=== PATIENT | male | born 1965 | race Caucasian/White ===

== ENCOUNTER 2019-12-19 11:03 | Outpatient (CLI) | payer OTHER, SELFPAY ==
--- NOTE | ~2019-12-19 | XR_ITS ---
EXAMINATION: XR chest 2V EXAM DATE: 12/19/2019 12:00 INDICATION: Cough and shortness of breath. TECHNIQUE: Frontal and lateral projections of the chest obtained and reviewed. Comparison is made to prior examination from 12/08/2019. FINDINGS: The lungs are clear. There are no pleural effusions. The cardiomediastinal silhouette is within normal limits. There is no pneumothorax suspected. The bones and soft tissues are unremarkab le. IMPRESSION: Unremarkable chest x-ray exam. Reviewed, dictated and finalized at location A. OL TRANSPORTATION SUPERVISOR
--- NOTE | ~2019-12-19 | XR_ITS ---
EXAMINATION: XR hip RT min 2V EXAM DATE: 12/19/2019 12:00 INDICATION: No known recent injury provided at this time. Pain of the right hip. TECHNIQUE: Right hip frontal, 'frog leg' projections for interpretation. Comparison is made to prior examination from 04/29/2017. FINDINGS: Smooth right hip femoral head contour, no radiographic evidence of avascular necrosis. The re is mild primary osteoarthritis. There are no acute fractures or dislocations identified. There is no subcutaneous gas. The soft tissue is unremarkable. There are no radiopaque foreign bodies. IMPRESSION: Mild right hip osteoarthritis unchanged. Reviewed, dictated and finalized at location A. ING ANALYST
--- NOTE | ~2019-12-19 | XR_ITS ---
EXAMINATION: XR lumbar spine 2-3V DATE: 12/19/2019 12:00 INDICATION: Radiculopathy and right-sided low back pain TECHNIQUE: Anteroposterior and lateral views of the lumbar spine, and cone-down lateral view of the l umbosacral junction were obtained. COMPARISON: Lumbar spine MR dated 05/13/2017 and radiographs dated 01/04/2016 and 04/02/2015 FINDINGS: There appear to be 6 nonrib-bearing lumbar segments are patent of this report numbered L1-L6. There a re only 11 rib-bearing thoracic segments on chest CT dated 01/02/2016. 8 mm anterolisthesis of L6 on S 1 with lucency projecting across the posterior most consistent with bilateral pars intra-articular is defects better appreciated on prior oblique imaging. 3 mm retrolisthesis L5 on L6. Mild anterior wed ging at T11 and L1. Mild to moderate disc height loss at L5 L6 and mild disc height loss at T10-T11 t hrough L1-L2, L4-L5 and L6-S1. IMPRESSION: 1. 6 nonrib-bearing lumbar segments, L1-L6 with 11 paired rib-bearing thoracic segments seen on prior CT. 2. Mild to moderate lumbar spondylosis most notable for chronic L6 spondylolysis with 8 mm anterolist hesis on S1. Reviewed, dictated and finalized at location A. STRETCHER IMPRESSION: 1. 6 nonrib-bearing lumbar segments, L1-L6 with 11 paired rib-bearing thoracic segments seen on prior CT. 2. Mild to moderate lumbar spondylosis most notable for chronic L6 spondylolysi s with 8 mm anterolisthesis on S1.
== END 2019-12-19 11:04 | disposition home or self-care (01) ==
LOC: CHSIMG 11:07
PROVIDERS: PCP Family Medicine; Visit Provider Family Medicine
DX: R05 Cough (principal); M25.551 Pain in right hip; M54.16 Radiculopathy, lumbar region
CPT/HCPCS: 71046; 72100; 73502

== ENCOUNTER 2019-12-27 08:11 | Outpatient (CLI) | payer OTHER, SELFPAY | END 2019-12-27 08:12 | disposition home or self-care (01) | LOC: CHSCARD 08:13 | PROVIDERS: PCP Family Medicine; Visit Provider Family Medicine | DX: R05 Cough (principal) | CPT/HCPCS: 94060; 94726; 94729 ==

== ENCOUNTER 2020-12-14 16:11 | Outpatient (CLI) | payer BC, SELFPAY ==
[2020-12-14 17:20] LABS: SARS-CoV-2 Ag Positive (Negative)
== END 2020-12-14 16:12 | disposition home or self-care (01) ==
LOC: CHSLAB 16:18
PROVIDERS: PCP Family Medicine; Visit Provider Family Medicine
DX: U07.1 COVID-19 (principal)
CPT/HCPCS: 87426; C9803

== ENCOUNTER 2020-12-15 19:47 | Emergency (ER) | payer BC, OTHER, SELFPAY ==
--- NOTE | ~2020-12-15 | XR_ITS ---
XR chest 1V portable DATE: 12/15/2020 21:14 INDICATION: Dyspnea TECHNIQUE: Portable AP chest on 12/15/2020 at 2116 hours COMPARISON: 12/19/2021 view chest FINDINGS: Limited portable single view of the chest. There is mild infiltrate or atelectasis in the mid and lower lung zones. Heart size is likely within normal range. No hilar or mediastinal mass, pulmonary vascular congestion , pleural effusion or pneumothorax is evident. IMPRESSION: Mild infiltrate or atelectasis in the mid and lower lung zones; limited portable examinat ion Reviewed, dictated and finalized at location A. OPERATIONS INTELLIGENCE OFFICER IMPRESSION: Mild infiltrate or atelectasis in the mid and lower lung zones; hernandez ited portable examination
--- NOTE | 2020-12-15 19:56 | ED.SOB ---
HPI - SOB/Dyspnea General Chief Complaint: Shortness of Breath/Dyspnea Stated Complaint: covid positive trouble breathing Source: patient Mode of arrival: ambulatory Limitations: no limitations History of Present Illness MD elicited complaint: shortness of breath and cough Pertinent past history: other (Diagnosed with COVID yesterday) Onset (ago): day(s) (4) Context: recent illness Timing: intermittent and progressively worsening Severity: moderate Exacerbating factors: lying flat and exertion Relieving factors: nothing Known history of: diabetes Associated symptoms: cough Treatment prior to arrival: none Related Data Home oxygen amount: none Home Medications Medication Instructions Recorded Confirmed metformin 500 mg PO DAILY 12/15/20 12/15/20 omeprazole 40 mg PO DAILY 12/15/20 12/15/20 Allergies Allergy/AdvReac Type Severity Reaction Status Date / Time No Known Allergies Allergy Verified 12/15/20 20:22 Review of Systems Review of Systems: All systems reviewed & are unremarkable except as noted in HPI and below Constitutional: Constitutional: Denies chills and Denies fever(s) Eyes: Eyes: Reports no additional eye complaints ENT: Reports system reviewed and no additional complaints, except as documented Cardiovascular: Cardiovascular: Reports no additional cardiovascular complaints Respiratory: Respiratory: Reports as per HPI Gastrointestinal: Gastrointestinal: Reports no additional gastrointestinal complaints Musculoskeletal: Musculoskeletal: Reports no additional musculoskeletal complaints Integumentary/Breasts: Skin/Breast: Reports system reviewed and no additional complaints, except as docu Neurologic: Reports system reviewed and no additional complaints, except as documented Psychiatric: Psychiatric: Reports no additional psychiatric complaints Endocrine: Endocrine: Reports no additional endocrine complaints [facility] Past Medical History Medical History (Updated 12/15/20 @ 21:48 by Yunier Izaguirre MD) GERD (gastroesophageal reflux disease) Morbid obesity Type 2 diabetes mellitus Surgical History Surgical History (Updated 12/15/20 @ 20:14 by Yunier Izaguirre MD) History of carpal tunnel surgery Social History Social History (Updated 12/15/20 @ 20:14 by Yunier Izaguirre MD) Smoking status: Former smoker Additional smoking assessment comments: quit 30 years Alcohol intake: current Alcohol use details: occasion Substance use: never Exam Const: General: healthy appearing, no acute distress and alert Nutritional Appearance: obese morbidly obese Orientation/consciousness: patient oriented x3 HENMT: Head: normal to inspection Ears: external ears normal General nose exam: Normal external nose present Face and sinus: normal facial exam Mouth: Yes lip normal and Yes moist mucous membranes Eyes: Conjunctivae: conjunctivae normal Pupils: Equal, round and reactive pupils present EOM: EOMs intact bilaterally Neck: Neck: normal visual inspection Resp: Effort & Inspection: tachypneic Auscultation: rhonchi lower bilaterally Cardio: Rate: tachycardic Rhythm: regular rhythm GI: GI Palp: Yes Soft to palpation and Yes Tenderness to palpation present (GI) Auscultation: normal bowel sounds Back/Spine/Pelvis: Cervical Spine: cervical ROM normal Thoracic/Lumbar Spine: thoraco-lumbar ROM normal Skin: General skin exam: normal color Rashes: no rashes Neuro: General: patient oriented x3, moves all extremities and no focal motor deficits Speech: normal speech Gait exam (Neuro): Normal gait present Extrem: General: normal to inspection and no clubbing, cyanosis or edema Psych: Mental Status: mental status grossly normal Affect: normal affect Attitude: cooperative Thought content: Yes Normal thought content present Course Course Emergency Course: Patient has mild tachypnea causing respiratory alkalosis. He is having good oxygen saturations 91-95% on room air. [place]
[2020-12-15 20:12] VITALS: BP 143/80; PULSE 134; RESP 30; TEMP 37.2; O2SAT 94
[2020-12-15 20:29] LABS: Base Excess ABG 0.4 mmol/L (0-2); HCO3 ABG 21.9 mmol/L (23-29); Oxygen Content ABG 20.8 %vol (16.0-22.0); Oxygen Saturation ABG 94.1 % (95-97); Oxyhemoglobin 93.1 % (94-100); PO2 ABG 64.8 mmHg (80-90); Total Hemoglobin 15.9 g/dL; pH ABG 7.51 (7.35-7.45)
[2020-12-15 20:31] LABS: Device ROOM AIR; Modified Allen's Test Pass; Site Drawn LEFT RADIAL
[2020-12-15 20:37] LABS: Hemoglobin 15.3 g/dL (14.0-18.0); Immature Granulocyte Absolute 0.01 K/mm3 (0.00-0.00); Immature Granulocyte Percent A 0.2 % (0.0-0.0); Lymphocytes Absolute Auto 0.79 K/mm3 (1.10-4.50); Lymphocytes Percent Auto 12.6 % (18.0-42.0); Mean Corpuscular HGB Conc 32.6 g/dL (32.0-36.0); Mean Corpuscular Hemoglobin 31.4 pg (27.0-31.0); Mean Corpuscular Volume 96.3 fL (78.0-102.0); Mean Platelet Volume 10.5 fl (8.7-11.0); Monocytes Absolute Auto 0.36 K/mm3 (0.10-0.90); Monocytes Percent Auto 5.7 % (2.0-11.0); Neutrophils Absolute Auto 5.1 K/mm3 (1.7-7.2); Neutrophils Percent Auto 81.5 % (50.0-70.0); Platelet Count Result 207 K/mm3 (150-420); Red Blood Count 4.88 M/mm3 (4.70-6.10); Red Cell Distribution Width 13.6 % (11.6-14.4); White Blood Count 6.3 K/mm3 (4.8-10.8)
[2020-12-15 20:55] LABS: D Dimer 0.58 mg/L (0.19-0.50)
[2020-12-15 20:58] LABS: BNP 10.5 pg/mL (0-100)
[2020-12-15 21:03] LABS: Alanine Aminotransferase 68 U/L (16-63); Albumin Level 3.1 g/dL (3.4-5.0); Alkaline Phosphatase 74 U/L (46-116); Anion Gap 11 mmol/L (8-16); Aspartate Amino Transferase 40 U/L (15-37); Bilirubin,Total 0.6 mg/dL (0.00-1.00); Blood Urea Nitrogen 11 mg/dL (7-18); Calcium 8.3 mg/dL (8.5-10.1); Carbon Dioxide 26 mmol/L (21-32); Chloride 101 mmol/L (98-108); Estimated CRCL calculation 110 ml/min; Estimated Glomerular Filt Rate > 60; Ferritin 620 ng/mL (26-388); Glucose 141 mg/dL (70-99); Osmolality Calculated 287 mOsm/kg (285-295); Sodium 138 mmol/L (136-145)
[2020-12-15 21:04] LABS: CRP 5.5 mg/dL (0.0-0.9); Magnesium 1.7 mg/dL (1.8-2.4)
[2020-12-15 21:31] VITALS: BP 151/79; PULSE 115; RESP 28; O2SAT 92
[2020-12-15] MEDS: DEXAMETHASONE SOD PHOS INJ 4 MG/ML VIAL 10 MG IV PUSH (21:52)
[2020-12-15] MEDS: ALBUTEROL SULFATE (*SP) INHALER 4 PUFF INHALATION (21:52)
--- NOTE | 2020-12-15 21:54 | PC.NURSE ---
Pt resting in bed semi fowlers. Agrees with plan to d/c to home.
[2020-12-15 22:03] VITALS: BP 138/88; PULSE 104; RESP 24; TEMP 37.1; O2SAT 94
== END 2020-12-15 22:04 | disposition home or self-care (01) ==
PROVIDERS: Emergency Provider Emergency Medicine; PCP Family Medicine
DX: U07.1 COVID-19 (principal); Z87.891 Personal history of nicotine dependence
CPT/HCPCS: 36415; 36600; 71045; 80053; 82728; 82805; 83735; 83880; 85025; 85380; 86140; 96374; 99283; 99284; A9270; J1100

== ENCOUNTER 2021-05-14 17:08 | Emergency (ER) | payer BC, SELFPAY ==
--- NOTE | ~2021-05-14 | CT_ITS ---
EXAMINATION: CTA chest PE protocol EXAM DATE: 05/14/2021 18:58 INDICATION: D dimer, shortness of breath. TECHNIQUE: Spiral CTA of the chest (pulmonary arteries) was performed with 100 cc Omnipaque 350 intr avenous contrast injection. Images were acquired during the pulmonary arterial phase. Coronal maxi mum intensity projection 3D-reconstructions were created by the technologist on dedicated workstation . Axial, coronal and sagittal reformatted images were reviewed. The dose-length product (DLP) for t his examination was 977.32 mGy-cm. The exposure was tailored according to patient size (auto mA exp osure control), and iterative reconstruction (ASIR) was used as additional dose reduction technique. There is no prior study for comparison. FINDINGS: Suboptimal pulmonary arterial opacification, some segmental pulmonary arteries not well ev aluated. No intraluminal filling defects identified. No thoracic aortic dissection. The lungs are c lear. There are no pleural or pericardial effusions. Tracheobronchial tree is patent. There is no mediastinal, hilar or axillary lymphadenopathy. There is no pneumothorax. There is borderline heart size. There is mild coronary arterial calcification, arterial sclerosis. There is hepatic anabel atosis. There is thoracic spondylosis without osteoblastic or osteolytic lesions identified. IMPRESSION: 1. Limited segmental evaluation, but no pulmonary emboli are suspected. 2. No acute findings. Reviewed, dictated and finalized at location A.
--- NOTE | ~2021-05-14 | XR_ITS ---
EXAMINATION: XR chest 2V EXAM DATE: 05/14/2021 18:02 INDICATION: Shortness of breath since COVID 19 in December. TECHNIQUE: Frontal and lateral projections of the chest obtained and reviewed. Comparison is made to prior examination from 12/15/2020. FINDINGS: The lungs are clear. There are no pleural effusions. The cardiomediastinal silhouette is within normal limits. There is no pneumothorax suspected. The bones and soft tissues are unremarkab le. IMPRESSION: Unremarkable chest x-ray exam. Reviewed, dictated and finalized at location A.
[2021-05-14 17:10] VITALS: BP 171/105; PULSE 94; RESP 20; TEMP 36.9
[2021-05-14 17:20] VITALS: O2SAT 96
--- NOTE | 2021-05-14 17:26 | ECG_ITS ---
Measurements Intervals [place] Rate: 90 P: 49 MO: 159 QRS: 2 QRSD: 90 T: 32 QT: 348 QTc: 428 Interpretive Statements SINUS RHYTHM DELAYED PRECORDIAL R/S TRANSITION BASELINE ARTIFACT- I, II, III, AVR, AVL, AVF, V1-V6 BORDERLINE ECG Electronically Signed On 05-14-2021 19:16:45 CDT by Riccardo Novak D.O.
--- NOTE | 2021-05-14 17:39 | ED.SOB ---
HPI - SOB/Dyspnea General Chief Complaint: Shortness of Breath/Dyspnea Stated Complaint: low pulse ox - Time Seen by Provider: 05/14/21 17:15 Source: patient Mode of arrival: ambulatory Limitations: no limitations History of Present Illness HPI Narrative: Patient comes in with complaints of shortness of breath which he noticed first this am at 7:30 am. Shortness of breath has been moderately severe, and ongoing since this am at 7:30. He is more short of breath with activity. He states he had Covid in late November and in December and has not felt he has ever really fully recovered. He had been doing better though until this am at 7:30 when he woke up short of breath. He took his pulse ox (he has a machine at home) and his sat was 84%. He says this usually runs 92% at rest since he had the Covid. He says he feels just like he had Covid and is worried he has it again. MD elicited complaint: shortness of breath and cough (mild cough, some clear thin nasal discharge ) Pertinent past history: other (recent Covid) Onset (ago): hour(s) Context: occurred during exertion Timing: constant (ongoing since 7:30 am ) Severity: moderate Exacerbating factors: exertion Relieving factors: rest Known history of: other (morbid obesity) Associated symptoms: other (fatigue) Related Data Home Medications Medication Instructions Recorded Confirmed metformin 500 mg PO DAILY 12/08/19 05/14/21 omeprazole 40 mg PO DAILY 05/14/21 05/14/21 Allergies Allergy/AdvReac Type Severity Reaction Status Date / Time No Known Allergies Allergy Verified 12/08/19 00:15 Review of Systems Constitutional: Constitutional: Reports fatigue and Reports weakness Eyes: Eyes: Reports no additional eye complaints ENT: Reports system reviewed and no additional complaints, except as documented Cardiovascular: Cardiovascular: Reports no additional cardiovascular complaints Respiratory: Comments: some cough, clear, thin, sputum, some thin clear nasal discharge Gastrointestinal: Gastrointestinal: Reports no additional gastrointestinal complaints Genitourinary: Genitourinary: Reports no additional male genitourinary complaints Musculoskeletal: Musculoskeletal: Reports no additional musculoskeletal complaints Integumentary/Breasts: Skin/Breast: Reports system reviewed and no additional complaints, except as docu Neurologic: Reports system reviewed and no additional complaints, except as documented Psychiatric: Psychiatric: Reports no additional psychiatric complaints Endocrine: Endocrine: Reports no additional endocrine complaints Hematologic/Lymphatic: Hematologic/Lymphatic: Reports no additional hematologic/lymphatic complaints Allergic/Immunologic: Allergic/Immunologic: Reports no additional allergic/immunologic complaints [facility] Past Medical History Medical History Diabetes mellitus Morbid obesity Surgical History Surgical History H/O hernia repair History of carpal tunnel surgery Family History Family History (Updated 05/14/21 @ 18:03 by Yunier Gilmore MD) Mother Dementia Obesity Father COPD (chronic obstructive pulmonary disease) Social History Social History (Updated 05/14/21 @ 18:03 by Yunier Gilmore MD) Smoking status: Former smoker Alcohol intake: never Substance use: never Additional occupation/education comments: works on [employer] Gender identity (if verbalized by the patient): Male Exam Const: General: no acute distress and alert Orientation/consciousness: patient oriented x3 HENMT: Head: normal to inspection Ears: external ears normal and TM's normal bilaterally General nose exam: Normal external nose present Face and sinus: normal facial exam Mouth: Yes Normal oral and palatal mucosa present Throat: posterior oropharynx normal Eyes: Conjunctivae: conjunctivae normal Neck: Neck: n
[2021-05-14 17:52] LABS: Base Excess ABG 7.6 mmol/L (0-2); HCO3 ABG 35.3 mmol/L (23-29); Oxygen Saturation ABG 93.5 % (95-97); PCO2 ABG 62.8 mmHg (35-45); PO2 ABG 71.6 mmHg (80-90); pH ABG 7.37 (7.35-7.45)
[2021-05-14 17:53] LABS: Device NASAL CANNULA; Modified Allen's Test Pass; Site Drawn RIGHT RADIAL
[2021-05-14 17:56] LABS: Basophils Absolute Auto 0.02 K/mm3 (0.00-0.10); Basophils Percent Auto 0.3 % (0.0-1.0); Eosinophils Absolute Auto 0.08 K/mm3 (0.02-0.50); Hematocrit 48.9 % (40.0-54.0); Hemoglobin 15.6 g/dL (14.0-18.0); Immature Granulocyte Absolute 0.01 K/mm3 (0.00-0.00); Immature Granulocyte Percent A 0.1 % (0.0-0.0); Lymphocytes Absolute Auto 1.19 K/mm3 (1.10-4.50); Lymphocytes Percent Auto 15.3 % (18.0-42.0); Mean Corpuscular HGB Conc 31.9 g/dL (32.0-36.0); Mean Corpuscular Hemoglobin 31.8 pg (27.0-31.0); Mean Corpuscular Volume 99.8 fL (78.0-102.0); Mean Platelet Volume 10.3 fl (8.7-11.0); Monocytes Absolute Auto 0.55 K/mm3 (0.10-0.90); Monocytes Percent Auto 7.1 % (2.0-11.0); Neutrophils Percent Auto 76.2 % (50.0-70.0); Platelet Count Result 240 K/mm3 (150-420); Red Cell Distribution Width 13.5 % (11.6-14.4); White Blood Count 7.8 K/mm3 (4.8-10.8)
[2021-05-14 18:01] VITALS: PULSE 99; RESP 20; O2SAT 96
[2021-05-14 18:11] LABS: D Dimer 0.63 mg/L (0.19-0.50)
[2021-05-14 18:17] LABS: Alanine Aminotransferase 48 U/L (16-63); Albumin Level 3.1 g/dL (3.4-5.0); Alkaline Phosphatase 82 U/L (46-116); Anion Gap 3 mmol/L (8-16); Aspartate Amino Transferase 25 U/L (15-37); Bilirubin,Total 0.3 mg/dL (0.00-1.00); Blood Urea Nitrogen 13 mg/dL (7-18); Calcium 8.8 mg/dL (8.5-10.1); Carbon Dioxide 36 mmol/L (21-32); Chloride 102 mmol/L (98-108); Estimated CRCL calculation 117 ml/min; Estimated Glomerular Filt Rate > 60; Glucose 116 mg/dL (70-99); Osmolality Calculated 293 mOsm/kg (285-295); Potassium 4.2 mmol/L (3.5-5.1); Sodium 141 mmol/L (136-145); Total Protein 6.6 g/dL (6.4-8.2)
[2021-05-14 18:29] LABS: Troponin I 9.5 ng/L (0.00-60.4)
[2021-05-14 18:44] LABS: NT Pro B Type Natriuretic Pept 51 pg/mL (0-125)
--- NOTE | 2021-05-14 18:45 | PC.NURSE ---
report to DELMY jones.
[2021-05-14 18:46] LABS: SARS-CoV-2 RNA PCR Negative (Negative)
[2021-05-14] MEDS: DEXAMETHASONE 4 MG TABLET 12 MG PO (19:36)
[2021-05-14 19:43] VITALS: BP 150/98; PULSE 90; RESP 20; O2SAT 92
== END 2021-05-14 19:44 | disposition home or self-care (01) ==
PROVIDERS: Emergency Provider Emergency Medicine; PCP Family Medicine
DX: B34.9 Viral infection, unspecified (principal); Z20.822 Contact with and (suspected) exposure to COVID-19
CPT/HCPCS: 36415; 36600; 71046; 71275; 80053; 82805; 83880; 84484; 85025; 85380; 93005; 99283; 99284; C9803; J8540; Q9967; U0003; U0005

== ENCOUNTER 2021-06-19 08:57 | Outpatient (CLI) | payer BC, SELFPAY ==
[2021-06-19 09:10] VITALS: PULSE 84; O2SAT 83
[2021-06-19 09:12] VITALS: PULSE 106; O2SAT 88
[2021-06-19 09:15] VITALS: PULSE 106; O2SAT 88
[2021-06-19 09:23] VITALS: PULSE 94; O2SAT 3
--- NOTE | 2021-06-19 09:39 | HOMEO2EVAL ---
Evaluation was performed at [facility] Home Oxygen Evaluation RC: Home Oxygen (O2) Evaluation Start: 06/19/21 09:26 Freq: Status: Active Protocol: RPE Activity Type Activity Date Activity User E-Sign Co-Sign Detail Recorded Client Recorded Date Recorded By Document 06/19/21 09:10 SJB [id number] 06/19/21 09:38 SJB Document 06/19/21 09:12 SJB [id number] 06/19/21 09:38 SJB Document 06/19/21 09:15 SJB [id number] 06/19/21 09:38 SJB Document 06/19/21 09:23 SJB [id number] 06/19/21 09:38 SJB 06/19/21 06/19/21 06/19/21 09:10 09:12 09:15 Home O2 Evaluation Test Phase Resting Resting Exercise Oxygen Delivery Room Air Nasal Cannula Nasal Cannula Oxygen Flow Rate (L/min) 1 2 Pulse Oximetry (90-100 %) 83 L 88 L 88 L Pulse Rate (60-100 beats/min) 84 106 H 106 H Activity Tolerance Fair Fair Rating of Perceived Dyspnea (PD) +2 Mild, Some +3 Moderate +2 Mild, Some Difficulty, Difficulty, But Difficulty, Noticeable to Can Continue Noticeable to the Observer the Observer Rate of Perceived Exertion (PE) 12 13 Somewhat 13 Somewhat Hard Hard Ambulation Distance (feet) 185 170 Home Oxygen Evaluation Comments WALK STARTED. AFTER ANOTHER AFTER APPROX 170 FT, PTS 185 FT, SP02 SP02 DROPPED TO DROPPED TO 88%. 88% AND 02 OXYGEN INCREASED TO 3 INCREASED TO 2 LPM. PT DOES LPM. COMPLAIN OF SOME LEG WEAKNESS/PAIN AT THIS TIME. Treatment Charges O2 Evaluation - Outpatient 06/19/21 09:23 Home O2 Evaluation Test Phase Exercise Oxygen Delivery Nasal Cannula Oxygen Flow Rate (L/min) Pulse Oximetry (90-100 %) 3 L Pulse Rate (60-100 beats/min) 94 Activity Tolerance Fair Rating of Perceived Dyspnea (PD) +3 Moderate Difficulty, But Can Continue Rate of Perceived Exertion (PE) 15 Hard Ambulation Distance (feet) 145 Home Oxygen Evaluation Comments AFTER A TOTAL OF 500 FT, THE PATIENT TOLERATED 3 LPM OXYGEN WELL, MAINTAINING AN SP02 OF 93% UNTIL THE END OF THE WALK. PLB ENCOURAGED. Treatment Charges
== END 2021-06-19 08:58 | disposition home or self-care (01) ==
PROVIDERS: PCP Family Medicine; Visit Provider Family Medicine
DX: R06.00 Dyspnea, unspecified (principal)
CPT/HCPCS: 94060; 94618; 94726; 94729

== ENCOUNTER 2021-08-07 07:46 | Outpatient (CLI) | payer BC, SELFPAY ==
--- NOTE | 2021-08-23 19:24 | WPDSLEEPSTUD ---
Sleep Study Date of Study: 08/07/21 Ordering Provider: Dilan Sanz MD Interpreting Physician: Sue Harris MD Sleep Study Type: Split Polysomnogram Height: 1.68 m Weight: 153.768 kg Body Mass Index: 54.7 Neck Circumference (inches): 21 [place]: 19 Reason for Sleep Study Hypersomnolence Sleep History Angel Cabello is a 55 year old man with complaints of non restorative sleep. He is a very active sleeper. Sometimes, he wakes up standing beside his bed. He has had sleep problems for 15 years. He has difficulty falling asleep, he wakes up throughout the night and he is sleepy during the daytime. He has tried CPAP but he frequently took it off while sleeping. He rarely awakens from sleep feeling short of breath. He occasionally awakens at night with heartburn, belching or coughing. He occasionally snores loudly. He occasionally has trouble sleeping with a cold. He rarely wakes up gasping for breath at night. He rarely has breathing problems at night observed by others. He frequently sweats excessively at night, frequently notices his heart pounding irregularly at night and he frequently falls asleep during the day. Occasionally he falls asleep while driving. He rarely has loss of muscle tone with strong emotion. He occasionally has daytime difficulties due to excessive sleepiness. He occasionally feels paralyzed on waking or falling asleep. He frequently has vivid dreamlike scenes upon awakening or falling asleep. He rarely feels afraid to go to sleep. He rarely has nightmares. He rarely remembers his dreams. He frequently has racing thoughts. He rarely feels sad or depressed. He occasionally has anxiety. He occasionally has muscular tension. He frequently notices parts of his body jerking. He frequently kicks at night and frequently has crawling and aching feelings in his legs. He occasionally has leg pain at night. He rarely has morning jaw pain. He rarely grinds his teeth at night. He rarely is bothered by pain during the day. He rarely is awakened by pain at night. He frequently wakes up feeling stiff in the morning with sore achy muscles and pain in the neck and spine. He has fatigue, memory problems and concentration difficulties. He takes antacids regularly. He has gained weight in the last year. He works split shifts. Normal bedtime is 9:00 a.m. during the week, taking 1 hour to fall asleep, typically waking 5-6 times to urinate. He stays awake on average 20 minutes when he has these sleep interruptions. He wakes in the evening at 6:00 p.m. On the weekends, he shifts his schedule 12 hours, going to bed at 9 p.m. and waking at 6:00 a.m. he takes naps in the afternoon or evening. A short nap is not refreshing. He is usually drowsy after waking for 3 hours or longer. He feels better usually in the evening compared to other times of day. He only occasionally awakens feeling refreshed Habits: Former smoker. Caffeine 3 cups per day. No alcohol or recreational drugs. FOR[facility]LY [facility], LATER [facility] Past Medical History Medical History (Updated 08/23/21 @ 21:26 by Sue Harris MD) Diabetes mellitus GERD (gastroesophageal reflux disease) Hypertension Morbid obesity Obstructive sleep apnea Diagnosed 2007, repeat study 2015, could not acclimate to CPAP Restless legs syndrome (RLS) Shingles Surgical History Surgical History (Updated 08/23/21 @ 19:50 by Sue Harris MD) H/O hernia repair History of carpal tunnel surgery S/P trigger finger release bilateral 2nd & 3rd trigger finger release Family History Family History (Updated 05/14/21 @ 18:03 by Yunier Gilmore MD) Mother Dementia Obesity Father COPD (chronic obstructive pulmonary disease) Social History Social History (Updated 08/23/21 @ 19:51 by Sue Harris MD) Smoking status: Former smoker Alcohol intake: never Substance use: never Living arrangements: with family Occupation/Education: occupation Additional occupation/
[2021-08-23 20:00] VITALS: BMI 54.7
== END 2021-08-08 07:38 | disposition home or self-care (01) ==
LOC: ANHCSM 07:48
PROVIDERS: PCP Family Medicine; Visit Provider Family Medicine
DX: G47.33 Obstructive sleep apnea (adult) (pediatric) (principal)
CPT/HCPCS: 95811

== ENCOUNTER 2021-11-27 08:34 | Outpatient (CLI) | payer BC, SELFPAY | END 2021-11-27 08:35 | disposition home or self-care (01) | LOC: CHSAUDIO 08:36 | PROVIDERS: PCP Family Medicine; Visit Provider Otolaryngology | DX: H91.20 Sudden idiopathic hearing loss, unspecified ear (principal) | CPT/HCPCS: 92557; 92567 ==

== ENCOUNTER 2021-11-27 20:21 | Outpatient (CLI) | payer BC, SELFPAY ==
--- NOTE | 2021-12-03 13:01 | WPDSLEEPSTUD ---
Sleep Study Date of Study: 11/27/21 Ordering Provider: Dilan Sanz MD Interpreting Physician: Sue Harris MD Sleep Study Type: BiPAP Titration Height: 1.69 m Weight: 157.397 kg Body Mass Index: 55.1 Neck Circumference (inches): 21 [place]: 19 Reason for Sleep Study Split night study on 08/07/2021 showing extremely severe obstructive sleep apnea with treatment emergent central apneas, severe hypoxemia to 56%, and loud snoring. He had an incomplete titration. He returns to the sleep lab now to have a full night BiPAP titration Sleep History Angel Cabello is a 56 year old man with complaints of non restorative sleep. He is a very active sleeper. Sometimes, he wakes up standing beside his bed. He has had sleep problems for 15 years. He has difficulty falling asleep, he wakes up throughout the night and he is sleepy during the daytime. He has tried CPAP but he frequently took it off while sleeping. He rarely awakens from sleep feeling short of breath. He occasionally awakens at night with heartburn, belching or coughing. He occasionally snores loudly. He occasionally has trouble sleeping with a cold. He rarely wakes up gasping for breath at night. He rarely has breathing problems at night observed by others. He frequently sweats excessively at night, frequently notices his heart pounding irregularly at night and he frequently falls asleep during the day. Occasionally he falls asleep while driving. He rarely has loss of muscle tone with strong emotion. He occasionally has daytime difficulties due to excessive sleepiness. He occasionally feels paralyzed on waking or falling asleep. He frequently has vivid dreamlike scenes upon awakening or falling asleep. He rarely feels afraid to go to sleep. He rarely has nightmares. He rarely remembers his dreams. He frequently has racing thoughts. He rarely feels sad or depressed. He occasionally has anxiety. He occasionally has muscular tension. He frequently notices parts of his body jerking. He frequently kicks at night and frequently has crawling and aching feelings in his legs. He occasionally has leg pain at night. He rarely has morning jaw pain. He rarely grinds his teeth at night. He rarely is bothered by pain during the day. He rarely is awakened by pain at night. He frequently wakes up feeling stiff in the morning with sore achy muscles and pain in the neck and spine. He has fatigue, memory problems and concentration difficulties. He takes antacids regularly. He has gained weight in the last year. He works split shifts. Normal bedtime is 9:00 a.m. during the week, taking 1 hour to fall asleep, typically waking 5-6 times to urinate. He stays awake on average 20 minutes when he has these sleep interruptions. He wakes in the evening at 6:00 p.m. On the weekends, he shifts his schedule 12 hours, going to bed at 9 p.m. and waking at 6:00 a.m. he takes naps in the afternoon or evening. A short nap is not refreshing. He is usually drowsy after waking for 3 hours or longer. He feels better usually in the evening compared to other times of day. He only occasionally awakens feeling refreshed Habits: Former smoker. Caffeine 3 cups per day. No alcohol or recreational drugs. COUNT INCLUDES THE [facility] Past Medical History Medical History Diabetes mellitus GERD (gastroesophageal reflux disease) GERD (gastroesophageal reflux disease) Hypertension Morbid obesity Morbid obesity Obstructive sleep apnea Diagnosed 2007, repeat study 2015, could not acclimate to CPAP Restless legs syndrome (RLS) Shingles Type 2 diabetes mellitus Surgical History Surgical History H/O hernia repair History of carpal tunnel surgery History of carpal tunnel surgery S/P trigger finger release bilateral 2nd & 3rd trigger finger release Family History Family History (Reviewed 12/03/21 @ 13:03 by
[2021-12-03 13:38] VITALS: BMI 55.1
== END 2021-11-28 07:00 | disposition home or self-care (01) ==
LOC: CHSCSM 20:22
PROVIDERS: PCP Family Medicine; Visit Provider Family Medicine
DX: G47.33 Obstructive sleep apnea (adult) (pediatric) (principal)
CPT/HCPCS: 95811

== ENCOUNTER 2021-12-17 14:00 | Outpatient (RCR) | payer BC, SELFPAY | END 2022-03-13 23:59 | disposition home or self-care (01) | LOC: ANHBWCAUD 14:00 | PROVIDERS: PCP Family Medicine; Visit Provider Otolaryngology | DX: Z46.1 Encounter for fitting and adjustment of hearing aid (principal) | CPT/HCPCS: 99199; V5257 ==

== ENCOUNTER 2022-05-09 07:15 | Outpatient (CLI) | payer BC, SELFPAY ==
--- NOTE | ~2022-05-09 | US_ITS ---
EXAMINATION: US arterial ankle brachial ind DATE: 05/09/2022 08:10 INDICATION: Claudication TECHNIQUE: Segmental pressures and plethysmographic and Doppler waveforms of the brachial and lower e xtremity arteries were obtained. COMPARISON: None. FINDINGS: Right and left brachial artery pressures of 158 mm Hg and 145 mm Hg, respectively, are concordant (no rmal difference <= 30 mmHg). The right ankle-brachial index (MARIAJOSE) is 1.12 (normal >= 0.9-1.0). The right great toe-brachial index (TBI) is 0.62 (normal >= 0.65). Arterial Doppler waveforms triphasic at the right posterior tibial an d biphasic at the right dorsalis pedis arteries, both with brisk systolic upstrokes. The left MARIAJOSE is 1.20. The left TBI is 0.64. Arterial Doppler waveforms are biphasic with brisk systol ic upstrokes at both left posterior tibial and dorsalis pedis arteries. IMPRESSION: 1. Mild bilateral arterial occlusive disease with normal bilateral ABIs but mildly decreased bilatera l TBIs. Reviewed, dictated and finalized at location D. IMPRESSION: 1. Mild bilateral arterial occlusive disease with normal bilateral ABIs but mil dly decreased bilateral TBIs.
== END 2022-05-09 07:16 | disposition home or self-care (01) ==
LOC: CHSIMG 07:17
PROVIDERS: PCP Family Medicine; Visit Provider Family Medicine
DX: I73.9 Peripheral vascular disease, unspecified (principal)
CPT/HCPCS: 93922

== ENCOUNTER 2022-06-02 11:22 | Outpatient (CLI) | payer BC, SELFPAY ==
[2022-06-02 11:45] LABS: Basophils Absolute Auto 0.01 K/mm3 (0.00-0.10); Basophils Percent Auto 0.1 % (0.0-1.0); Eosinophils Absolute Auto 0.06 K/mm3 (0.02-0.50); Eosinophils Percent Auto 0.7 % (1.0-6.0); Hematocrit 44.8 % (40.0-54.0); Hemoglobin 14.5 g/dL (14.0-18.0); Immature Granulocyte Absolute 0.02 K/mm3 (0.00-0.00); Immature Granulocyte Percent A 0.2 % (0.0-0.0); Lymphocytes Percent Auto 17.3 % (18.0-42.0); Mean Corpuscular HGB Conc 32.4 g/dL (32.0-36.0); Mean Corpuscular Hemoglobin 31.6 pg (27.0-31.0); Mean Corpuscular Volume 97.6 fL (78.0-102.0); Mean Platelet Volume 9.5 fl (8.7-11.0); Monocytes Absolute Auto 0.57 K/mm3 (0.10-0.90); Neutrophils Absolute Auto 6.1 K/mm3 (1.7-7.2); Neutrophils Percent Auto 74.7 % (50.0-70.0); Platelet Count Result 254 K/mm3 (150-420); Red Blood Count 4.59 M/mm3 (4.70-6.10); Red Cell Distribution Width 13.2 % (11.6-14.4); White Blood Count 8.1 K/mm3 (4.8-10.8)
[2022-06-02 11:46] LABS: Add Urine Microscopic? YES; Appearance Urine Clear (Clear); Bilirubin Urine 1+ (Negative); Blood Urine Negative (Negative); Color Urine Yellow (Yellow); Glucose Urine UA Negative (Negative); Ketones Urine Negative (Negative); Leukocyte Esterase Ur Negative LEU/UL (Negative); Nitrate Urine Negative (Negative); Protein Urine Negative (Negative); Specific Grav Ur >= 1.030 (1.010-1.020); Urobilinogen Urine 0.2 mg/dL (0.2-1.0)
[2022-06-02 11:51] LABS: RBC Urine None seen /hpf (0-2); WBC Urine None seen /hpf (0-3)
[2022-06-02 11:52] LABS: Bacteria Urine Trace /hpf; Mucus Urine Moderate /lpf
[2022-06-02 12:27] LABS: SARS-CoV-2 RNA PCR Negative (Negative)
[2022-06-02 12:38] LABS: Alanine Aminotransferase 89 U/L (16-63); Albumin Level 3.4 g/dL (3.4-5.0); Alkaline Phosphatase 94 U/L (46-116); Amylase 27 U/L (25-115); Anion Gap 7 mmol/L (8-16); Aspartate Amino Transferase 51 U/L (15-37); Bilirubin,Total 0.4 mg/dL (0.00-1.00); Blood Urea Nitrogen 8 mg/dL (7-18); Carbon Dioxide 30 mmol/L (21-32); Chloride 105 mmol/L (98-108); Estimated Glomerular Filt Rate > 60; Glucose 97 mg/dL (70-99); Lipase 64 U/L (73-393); Osmolality Calculated 292 mOsm/kg (285-295); Potassium 4.2 mmol/L (3.5-5.1); Sodium 142 mmol/L (136-145); Total Protein 6.3 g/dL (6.4-8.2)
[2022-06-02 12:44] LABS: Calcium 8.6 mg/dL (8.5-10.1)
== END 2022-06-02 11:23 | disposition home or self-care (01) ==
LOC: CHSLAB 11:24
PROVIDERS: PCP Family Medicine; Visit Provider Family Medicine
DX: R10.84 Generalized abdominal pain (principal); Z20.822 Contact with and (suspected) exposure to COVID-19
CPT/HCPCS: 36415; 80053; 81001; 82150; 83690; 85025; C9803; U0003; U0005

== ENCOUNTER 2022-12-09 12:17 | Outpatient (CLI) | payer SELFPAY ==
[2022-12-09 12:25] VITALS: PULSE 98; O2SAT 94
[2022-12-09 12:34] VITALS: PULSE 111; O2SAT 93
--- NOTE | 2022-12-09 13:46 | WPDPFTINT ---
PFT Procedure Performed PFT Procedure Performed Spirometry with Pre/Post Bronchodilator Plethysmography (Lung Vol) Diffusing Cap (DLCO) Flow Vol Loop PFT Interpretation DOS: 12/09/2022 REQUESTING: Vincent Mahoney APRN REASON FOR TESTING: PULMONARY FUNCTION TESTS Results are not reproducible due to patient having uncontrolled coughing during testing Spirometry: Pre bronchodilator FEV1 is 2.69 L, 90% predicted. Pre bronchodilator FVC is 3.33 L, 88% predicted. The FEV1: FVC ratio is 81%, normal. The FEF 25-75% is 2.69 L, 86% predicted. After bronchodilator administration there was no increase in flows. FEV1 dropped by 6%, 2.54 L. FVC dropped by 7%, 3.11 L. The ratio remains constant, 82%. There is no change in the FEF 25-75%. Lung volumes: Total lung capacity 5.10 L, 87% predicted, normal. Residual volume 1.74 L, 82% predicted. RV/TLC is 34%, in the normal range. No air trapping. No hyperinflation. Airway resistance 135 cm H2O/ L/second, mildly elevated. Diffusion: DLCO is 25.2, 78% predicted. DLCO/VA is 5.60, 144% predicted. Flow volume loop: Not normal, consistent with coughing. IMPRESSION: Normal spirometry without response to bronchodilator. Normal lung volumes. Normal diffusion. Flow volume loop is not reproducible. Sue Harris MD
--- NOTE | 2022-12-09 14:04 | HOMEO2EVAL ---
Evaluation was performed at [facility] [place] Home Oxygen Evaluation RC: Home Oxygen (O2) Evaluation Start: 12/09/22 13:59 Freq: Status: Active Protocol: RPE Activity Type Activity Date Activity User E-sign Co-sign Detail Recorded Client Recorded Date Recorded By Document 12/09/22 12:25 [email or web address] [id number] 12/09/22 14:01 KAB Document 12/09/22 12:34 KAB [id number] 12/09/22 14:03 KAB 12/09/22 12/09/22 12:25 12:34 Home O2 Evaluation [Oxygen] -Test Phase Resting Exercise -Oxygen Delivery Room Air Room Air [Pulse Oximetry] -Pulse Oximetry (90-100 %) 94 93 [Pulse Rate] -Pulse Rate (60-100 beats/min) 98 111 H [Evaluation] -Activity Tolerance Excellent Good [Exercise] -Ambulation Distance (feet) 600 -Ambulation Distance (meters) 182.87 [Comments] -Home Oxygen Evaluation Comments Patient walked about 66 feet. He did slow at times but did not qualify for oxygen. [Charges] -Treatment Charges O2 Evaluation - O2 Evaluation - Outpatient Outpatient
== END 2022-12-09 12:18 | disposition home or self-care (01) ==
LOC: CHSCARD 12:18
PROVIDERS: PCP Family Medicine; Visit Provider Nurse Practitioner Family
DX: R06.02 Shortness of breath (principal); R06.09 Other forms of dyspnea; U09.9 Post COVID-19 condition, unspecified
CPT/HCPCS: 94060; 94618; 94726; 94729

== ENCOUNTER 2023-03-20 09:00 | Outpatient (CLI) | payer BC, SELFPAY ==
--- NOTE | ~2023-03-20 | XR_ITS ---
Clinical Indication: Cough PA and lateral views of the chest: Comparison: 05/14/2021 Findings: The lungs are clear, without evidence of focal consolidation or pleural effusion. Cardiome diastinal silhouette is within normal limits. Bones and soft tissues are unremarkable. Impression: Normal chest. Reviewed, dictated and finalized at location . Impression: Normal chest.
== END 2023-03-20 09:01 | disposition home or self-care (01) ==
LOC: CHSIMG 09:04
PROVIDERS: PCP Family Medicine; Visit Provider Family Medicine
DX: R05.2 Subacute cough (principal)
CPT/HCPCS: 71046

== ENCOUNTER 2023-05-06 10:56 | Outpatient (CLI) | payer BC, SELFPAY ==
--- NOTE | ~2023-05-06 | CT_ITS ---
CT Scan of the Chest without Contrast: Clinical Indication: Dyspnea Technique: Contiguous sections were acquired throughout the chest without intravenous contrast. Dose reduction technique was used on this scan by utilizing automated exposure control and iterative recon struction technique. The dose-length product (DLP) was 979.36 mGy-cm. COMPARISON: 05/14/2021 Findings: There is no evidence of any significant mediastinal, hilar or axillary lymphadenopathy. Coronary don ry calcifications are present. There is no evidence of pleural or pericardial effusion. The lungs are clear. No pulmonary nodules or infiltrates are noted. Images through the upper abdomen reveal no abnormalities. There is DISH of the thoracic spine. Impression: No significant abnormalities seen. Reviewed, dictated and finalized at location . Impression: No significant abnormalities seen.
== END 2023-05-06 10:57 | disposition home or self-care (01) ==
PROVIDERS: PCP Family Medicine; Visit Provider Nurse Practitioner Family
DX: R06.09 Other forms of dyspnea (principal); U09.9 Post COVID-19 condition, unspecified
CPT/HCPCS: 71250

== ENCOUNTER 2023-05-08 08:40 | Outpatient (CLI) | payer BC, SELFPAY ==
[2023-05-08 08:58] LABS: Base Excess ABG 3.8 mmol/L (0-2); HCO3 ABG 30.2 mmol/L (23-29); Oxygen Content ABG 17.6 %vol (16.0-22.0); Oxygen Saturation ABG 89.2 % (95-97); Oxyhemoglobin 87.8 % (94-100); PCO2 ABG 52.5 mmHg (35-45); PO2 ABG 56.9 mmHg (80-90); Total Hemoglobin 14.3 g/dL (12.0-18.0); pH ABG 7.38 (7.35-7.45)
[2023-05-08 09:00] VITALS: PULSE 70; O2SAT 93
[2023-05-08 09:00] LABS: Device ROOM AIR; Modified Allen's Test Pass; Site Drawn LEFT RADIAL
[2023-05-08 09:05] VITALS: PULSE 103; O2SAT 91
[2023-05-08 09:10] VITALS: PULSE 100; O2SAT 93
--- NOTE | 2023-05-08 09:24 | HOMEO2EVAL ---
Evaluation was performed at [facility] Home Oxygen Evaluation RC: Home Oxygen (O2) Evaluation Start: 05/08/23 09:17 Freq: Status: Active Protocol: RPE Activity Type Activity Date Activity User E-sign Co-sign Detail Recorded Client Recorded Date Recorded By Document 05/08/23 09:00 [id number] 05/08/23 09:24 CH Document 05/08/23 09:05 [id number] 05/08/23 09:24 CH Document 05/08/23 09:10 [id number] 05/08/23 09:24 05/08/23 05/08/23 05/08/23 09:00 09:05 09:10 Home O2 Evaluation [Oxygen] -Test Phase Resting Exercise Exercise -Oxygen Delivery Room Air Room Air Room Air [Pulse Oximetry] -Pulse Oximetry (90-100 %) 93 91 93 [Pulse Rate] -Pulse Rate (60-100 beats/min) 70 103 H 100 [Evaluation] -Activity Tolerance Good Good Good -Rating of Perceived Dyspnea (PD) +1 Mild, +2 Mild, Some +3 Moderate Noticeable to Difficulty, Difficulty, But the Participant Noticeable to Can Continue but Not to an the Observer Observer -Rate of Perceived Exertion (PE) 7 12 13 Somewhat Query Text:Click the Protocol Button Hard to View the RPE Scale [Exercise] -Ambulation Distance (feet) 200 250 -Ambulation Distance (meters) 60.95 76.19 [Comments] -Home Oxygen Evaluation Comments will begin walk saturations pt ended walk @ remain at 91% 93% heart rate will continue 100. pt walked walk a total of 450 feet. pt was out of breath during the ealk . [Charges] -Treatment Charges O2 Evaluation - Outpatient
== END 2023-05-08 08:41 | disposition home or self-care (01) ==
PROVIDERS: PCP Family Medicine; Visit Provider Nurse Practitioner Family
DX: R06.02 Shortness of breath (principal); R06.09 Other forms of dyspnea; U09.9 Post COVID-19 condition, unspecified
CPT/HCPCS: 36600; 82805; 94618

== ENCOUNTER 2023-08-07 11:01 | Outpatient (CLI) | payer BC, SELFPAY ==
--- NOTE | ~2023-08-07 | XR_ITS ---
Left Shoulder Technique: AP and scapular Y views were obtained. Clinical History: Pain Findings: No fracture or dislocation is seen. There is mild AC joint degenerative change. Glenohumera l joint is unremarkable. Soft tissues are unremarkable. Impression: Mild AC joint degenerative change. Reviewed, dictated and finalized at location . Impression: Mild AC joint degenerative change.
== END 2023-08-07 11:02 | disposition home or self-care (01) ==
LOC: CHSIMG 11:04
PROVIDERS: PCP Family Medicine; Visit Provider Family Medicine
DX: M25.512 Pain in left shoulder (principal); M24.112 Other articular cartilage disorders, left shoulder
CPT/HCPCS: 73030

== ENCOUNTER 2023-08-11 14:44 | Outpatient (RCR) | payer BC, SELFPAY ==
--- NOTE | 2023-08-11 15:44 | OPREHPOC ---
Outpatient Therapy Plan of Care This is a Multidisciplinary Plan of Care that may contain components documented by all disciplines (PT, OT, and ST.) PT Problem 1 PT Problem #1 Knowledge Deficit PT Goal 1 Goal 1. independent and compliant with HEP to improve tolerance for continued skilled PT and exercises. Target Visit 4 PT Problem 2 PT Problem #2 Pain PT Goal 1 Goal 1. patient to report 2/10 pain or less at worst in the L shoulder Target Visit 9 PT Problem 3 PT Problem #3 Impaired Strength PT Goal 1 Goal 1. 4+/5 or better overall L shoulder strength 2. 5/5 L elbow extension Target Visit 9 PT Problem 4 PT Problem #4 Impaired Functional Mobil PT Goal 1 Goal 1. patient to carry 20lbs in each hand for 400ft without increase pain 2. no pain at rest/while sleeping 3. patient to lift 10lbs overhead x10 reps with bilateral UE's. 4. quick dash to display 20% or less functional deficits Target Visit 9
--- NOTE | 2023-08-11 15:45 | PTOPEVAL1 ---
Assessment and note entered by JT File, PT Evaluation Information Assessment Status Evaluation Diagnosis L shoulder pain Onset 08/05/23 Subjective Information patient reports he is having constant pain in the L shoulder. he reports he was playing with his grandson. he reports he it twisted during playing with him. he reports xrays were negative. he reports he has not had any MRI. he reports the shoulder is in constant pain/cramping of the L shoulder. he reports he feels pain down the arm into the elbow and forearm. no NTB. no neck pain. no injection. he reports he was given oral pain meds and anti-inflamatories. Reported Pain Level Pain Score 8: Self Report Assessment PT Clinical Summary mr. alvarado is a 57 yo man who presents to skilled PT services for evaluation and treatment of L shoulder pain. he presents with limitations in strength, tenderness to palpation, and pain at rest/with activity in the L shoulder. he displays signs and symptoms of RTC and biceps long head tendonitis. he would benefit from continued skilled PT services to address his objective/ functional deficits and return to prior level activities without limitations. Plan of Care Interventions Electrical Stimulation,Hot Pack/Cold Pack,Manual Therapy,Neuro Re-education,Patient/Caregiver Educati,Therapeutic Activities,Therapeutic Exercise PT Services Indicated Yes Treatment Frequency and 3x weekly for 9 visits Duration These treatments will address the objective and functional deficits as defined above. The patient will be advanced safely and appropriately in order for the patient to progress towards his/her prior level of function. Additional exercises will be introduced and as well as a comprehensive home exercise program upon discharge, if needed, ?to ensure carryover of functional gains achieved in the clinic. This treatment plan has been reviewed and agreement upon by the patient.
== END 2023-08-12 23:59 | disposition home or self-care (01) ==
LOC: CHSPT 14:44
PROVIDERS: PCP Family Medicine; Visit Provider Family Medicine
DX: M25.512 Pain in left shoulder (principal)
CPT/HCPCS: 97014; 97110; 97161; G0283

== ENCOUNTER 2024-01-16 10:42 | Outpatient (CLI) | payer BC, SELFPAY ==
--- NOTE | ~2024-01-16 | XR_ITS ---
EXAM: XR shoulder LT min 2V DATE: 01/16/2024 11:16 HISTORY: Pain in Lt. shoulder radiates down Lt. arm . COMPARISON: 08/07/2023. FINDINGS: Normal mineralization. No fracture or dislocation. No lytic or blastic lesion. Moderate AC joint and mild glenohumeral joint degenerative change. No erosion or periosteal change. Soft tissues within normal limits. IMPRESSION: Polyarticular left shoulder osteoarthritis. Reviewed, dictated and finalized at location K. ARATOR OPERATOR
== END 2024-01-16 10:43 | disposition home or self-care (01) ==
LOC: CHSIMG 10:43
PROVIDERS: PCP Family Medicine; Visit Provider Family Medicine
DX: M25.512 Pain in left shoulder (principal); M19.012 Primary osteoarthritis, left shoulder
CPT/HCPCS: 73030

== ENCOUNTER 2024-01-22 14:32 | Outpatient (RCR) | payer BC, SELFPAY ==
--- NOTE | 2024-01-22 16:04 | OPREHPOC ---
Outpatient Therapy Plan of Care This is a Multidisciplinary Plan of Care that may contain components documented by all disciplines (PT, OT, and ST.) PT Problem 1 PT Problem #1 Knowledge Deficit PT Goal 1 Goal patient to report independence with HEP Target Visit 4 PT Problem 2 PT Problem #2 Pain PT Goal 1 Goal 1. patient to report highest pain at 2/10 2. patient to report ability to sleep with no disturbance due to L shoulder pain Target Visit 8 PT Problem 3 PT Problem #3 Impaired Functional Mobil PT Goal 1 Goal 1. patient to report ability to work in the garage with his sons with no increase in L shoulder pain 2. patient to demonstrate less than 20% impairment on QuickDash Target Visit 8
--- NOTE | 2024-01-22 16:05 | PTOPEVAL1 ---
Assessment and note entered by Mee Stevenson DPT Evaluation Information Assessment Status Evaluation Diagnosis L shoulder pain Onset 01/18/24 Subjective Information Patient reports at the end of Dec he noticed increased L shoulder pain. He reports he has attended PT for the R shoulder in the past and has tried those exercises to help with L shoulder pain but has not had any relief. He reports he likes to work in the garage with his sons and thinks this may have contributed to pain. he reports pain is at the pec and directly through to the posterior side of shoulder. he also reports some pain down into the elbow. patient reports pain increases with laying down, sleeping, and sitting stationary. he does not feel he is weaker. he reports he is retired. Reported Pain Level Pain Score 8: Self Report Assessment PT Clinical Summary Mr. Cabello is a 58 year old male who presents to PT with L shoulder pain. He demonstrates impaired posture, increased L shoulder pain and tenderness to the L pec limiting his ability to sleep and lay down. He would benefit from skilled PT to address impairments and return to PLOF. Plan of Care Interventions Electrical Stimulation,Hot Pack/Cold Pack,Manual Therapy,Neuro Re-education,Patient/Caregiver Educati,Therapeutic Activities,Therapeutic Exercise PT Services Indicated Yes Treatment Frequency and 2x weekly for 10 visits Duration These treatments will address the objective and functional deficits as defined above. The patient will be advanced safely and appropriately in order for the patient to progress towards his/her prior level of function. Additional exercises will be introduced and as well as a comprehensive home exercise program upon discharge, if needed, ?to ensure carryover of functional gains achieved in the clinic. This treatment plan has been reviewed and agreement upon by the patient.
--- NOTE | 2024-02-05 08:02 | PCPTNOTE ---
patient cancelled due to illness
== END 2024-02-19 20:00 | disposition home or self-care (01) ==
LOC: CHSPT 14:32
PROVIDERS: Visit Provider Family Medicine
DX: M25.512 Pain in left shoulder (principal)
CPT/HCPCS: 97110; 97140; 97161